=== PATIENT | male | born 1980 ===

== ENCOUNTER 2016-11-19 17:41 | Emergency (ER) | payer MEDICAID ==
[2016-11-19 17:53] VITALS: TEMP 98.1
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
[2016-11-20 00:37] VITALS: BP 150/90; PULSE 83; RESP 18; O2SAT 98
--- NOTE | 2016-11-20 09:32 | RAD ---
PROCEDURE: Radiographs of the Lumbar Spine. HISTORY: injury COMPARISON: No prior. FINDINGS: BONES: Normal alignment. No listhesis. No fracture. DISC SPACES: Unremarkable. OTHER FINDINGS: None. IMPRESSION: Unremarkable radiographs of the lumbar spine.
--- NOTE | 2016-11-20 09:34 | RAD ---
PROCEDURE: Cervical Spine Radiographs. HISTORY: Pain. COMPARISON: None. FINDINGS: BONES: Alignment maintained. No fracture. Dens Intact. DISC SPACES: Normal. SOFT TISSUES: Normal. No prevertebral soft tissue swelling. OTHER FINDINGS: None. IMPRESSION: Normal cervical spine radiographs
== END 2016-11-20 00:10 | disposition home or self-care (01) ==
LOC: ED 17:41
DX: S16.1XXA Strain of muscle, fascia and tendon at neck level, initial encounter (principal); S39.012A Strain of muscle, fascia and tendon of lower back, initial encounter; Y04.0XXA Assault by unarmed brawl or fight, initial encounter; E10.9 Type 1 diabetes mellitus without complications

== ENCOUNTER 2017-11-29 00:34 | Emergency (ER) | payer SELFPAY ==
[2017-11-29 00:42] VITALS: BMI 34.3
[2017-11-29 00:49] VITALS: RESP 18; TEMP 98.5
--- NOTE | 2017-11-29 01:29 | ED PDOC ---
Arrival/HPI - General Chief Complaint: Alcohol Ingestion Time Seen by Provider: 11/29/17 00:41 Historian: Patient - History of Present Illness Narrative History of Present Illness (Text): 11/29/17 01:26 37 year old male, whose past medical history includes depression and IDDM, who presents to the Emergency department for evaluation. Patient admits to drinking earlier tonight. Patient states he feels anxious and depresses. States he " needs someone to protect him". Patient denies any fever, chills, back pain, neck pain, abdominal pain, nausea, vomiting, diarrhea, suicidal ideation, homicidal ideation, or any other complaints. Time/Duration: Prior to Arrival Symptom Onset: Gradual Symptom Course: Unchanged Activities at Onset: Light Context: Home Past Medical History - Provider Review Nursing Documentation Reviewed: Yes - Infectious Disease Hx of Infectious Diseases: None - Cardiac Hx Cardiac Disorders: No - Pulmonary Hx Respiratory Disorders: No - Neurological Hx Neurological Disorder: No - HEENT Hx HEENT Disorder: No - Renal Hx Renal Disorder: No - Endocrine/Metabolic Hx Endocrine Disorders: Yes Hx Diabetes Mellitus Type 1: Yes (insulin pump) - Hematological/Oncological Hx Blood Disorders: No - Integumentary Hx Dermatological Disorder: No Hx Basal Cell Carcinoma: No - Musculoskeletal/Rheumatological Hx Musculoskeletal Disorders: No - Gastrointestinal Hx Gastrointestinal Disorders: No - Genitourinary/Gynecological Hx Genitourinary Disorders: No - Psychiatric Hx Anxiety: Yes Hx Substance Use: No Family/Social History - Physician Review Nursing Documentation Reviewed: Yes Family/Social History: Unknown Family HX Smoking Status: Never Smoked Hx Alcohol Use: Yes Frequency of alcohol use: Socially Hx Substance Use: No Allergies/Home Meds Allergies/Adverse Reactions: Allergies Penicillins Allergy (Verified 11/19/16 17:42) ANAPHYLAXIS Home Medications: Home Meds Medication Instructions Recorded Confirmed Home Med [Home Med] 1 unit SC PRN PRN 11/29/17 11/29/17 Review of Systems - Physician Review All systems were reviewed & negative as marked: Yes - Review of Systems Constitutional: Normal Eyes: Normal ENT: Normal Respiratory: Normal. absent: SOB, Cough Cardiovascular: Normal. absent: Chest Pain Gastrointestinal: Normal. absent: Abdominal Pain Genitourinary Male: Normal. absent: Dysuria, Frequency Musculoskeletal: Normal. absent: Back Pain, Neck Pain Skin: Normal. absent: Rash Neurological: Normal. absent: Headache, Dizziness Endocrine: Normal Hemo/Lymphatic: Normal Psychiatric: Anxiety, Depression Physical Exam Vital Signs Reviewed: Yes Vital Signs Temp Pulse Resp BP Pulse Ox 11/29/17 00:35 98.5 F 79 18 122/78 97 Temperature: Afebrile Blood Pressure: Normal Pulse: Regular Respiratory Rate: Normal Appearance: Positive for: Well-Appearing, Non-Toxic, Comfortable Pain Distress: None Mental Status: Positive for: Alert and Oriented X 3 Finger Stick Blood Glucose: 127 - Systems Exam Head: Present: Atraumatic, Normocephalic Pupils: Present: PERRL Extroacular Muscles: Present: EOMI Conjunctiva: Present: Normal Mouth: Present: Moist Mucous Membranes Neck: Present: Normal Range of Motion Respiratory/Chest: Present: Clear to Auscultation, Good Air Exchange. No: Respiratory Distress, Accessory Muscle Use Cardiovascular: Present: Regular Rate and Rhythm, Normal S1, S2. No: Murmurs Abdomen: No: Tenderness, Distention, Peritoneal Signs Back: Present: Normal Inspection Upper Extremity: Present: Normal Inspection. No: Cyanosis, Edema Lower Extremity: Present: Normal Inspection. No: Edema Neurological: Present: GCS=15, CN II-XII Intact, Speech Normal Skin: Present: Warm, Dry, Normal Color. No: Rashes Psychiatric: Present: Alert, Oriented x 3, Normal Insight, Normal Concentration , Intoxicated Medical Decision Making ED Course and Treatment: 11/29/17 01:30 Impression: 37 year old male presents to the Emergency department for evaluation due to anxiety and depression. Plan: -- Labs -- Reassess and disposition Progress Notes: 11/29/17 06:30 Patient cleared by PARIS Tang/ for discharge.To follow up with his psychiatrist this week - Lab Interpretations Lab Results: 11/29/17 02:00 11/29/17 02:00 Lab Results 11/29/17 02:00: WBC 4.8, RBC 4.73, Hgb 13.4 L, Hct 39.3 L, MCV 83.1, MCH 28.3, MCHC 34.1, RDW 13.3, Plt Count 171, MPV 8.9 11/29/17 02:00: Alcohol, Quantitative 142 H 11/29/17 02:00: Sodium 143, Potassium 4.1, Chloride 107, Carbon Dioxide 23, Anion Gap 18, BUN 17, Creatinine 0.8, Est GFR ( Amer) > 60, Est GFR (Non- Af Amer) > 60, Random Glucose 121 H, Calcium 8.9, Total Bilirubin 0.2, AST 46, ALT 51, Alkaline Phosphatase 93, Total Protein 7.5, Albumin 4.6, Globulin 2.9, Albumin/Globulin Ratio 1.6 11/29/17 01:45: Urine Opiates Screen Negative, Urine Methadone Screen Negative, Ur Barbiturates Screen Negative, Ur Phencyclidine Scrn Negative, Ur Amphetamines Screen Negative, U Benzodiazepines Scrn Negative, U Oth Cocaine Metabols Negative, U Cannabinoids Screen Negative 11/29/17 00:54: POC Glucose (mg/dL) 127 H - Scribe Statement The provider has reviewed the documentation as recorded by the Scribjeaneth Gonzalez All medical record entries made by the Xuanibe were at my direction and personally dictated by me. I have reviewed the chart and agree that the record accurately reflects my personal performance of the history, physical exam, medical decision making, and the department course for this patient. I have also personally directed, reviewed, and agree with the discharge instructions and disposition. Disposition/Present on Arrival - Present on Arrival Any Indicators Present on Arrival: No History of DVT/PE: No History of Uncontrolled Diabetes: No Urinary Catheter: No History of Decub. Ulcer: No History Surgical Site Infection Following: None - Disposition Have Diagnosis and Disposition been Completed?: Yes Diagnosis: Alcohol abuse, Depression Disposition: HOME/ ROUTINE Disposition Time: 06:32 Patient Plan: Discharge Condition: GOOD Discharge Instructions (ExitCare): Depression, Adult (DC), Alcohol Abuse and Alcoholism (DC) Additional Instructions: Follow up with your psychiatrist as instructed/avoid alcohol use Forms: [facility] [facility] (Burmese)
[2017-11-29 02:15] LABS: HEMOGLOBIN 13.4 g/dL (14.0-18.0); MEAN CELL VOLUME 83.1 fl (80.0-105.0); MEAN CORPUSCULAR HEMOGLOBIN 28.3 pg (25.0-35.0); MEAN CORPUSCULAR HGB CONC 34.1 g/dl (31.0-37.0); MEAN PLATELET VOLUME 8.9 fl (7.0-11.0); RBC 4.73 10^6/uL (3.5-6.1); RED CELL DISTRIBUTION WIDTH 13.3 % (11.5-14.5); WHITE BLOOD COUNT 4.8 10^3/ul (4.5-11.0)
[2017-11-29 02:22] LABS: ALB/GLOB RATIO 1.6 (1.1-1.8); ALBUMIN 4.6 g/dL (3.0-4.8); ALT/SGPT 51 U/L (7-56); AST/SGOT 46 U/L (17-59); BLOOD UREA NITROGEN 17 mg/dL (7-21); CALCIUM 8.9 mg/dL (8.4-10.5); GFR NON-AFRICAN AMERICAN > 60
[2017-11-29 03:38] LABS: BARBITURATES, UR NEGATIVE (NEGATIVE); BENZODIAZEPINES, UR NEGATIVE (NEGATIVE); OPIATES, UR NEGATIVE (NEGATIVE); PHENCYCLIDINE, UR NEGATIVE (NEGATIVE)
[2017-11-29 07:38] VITALS: BP 124/85; PULSE 86; O2SAT 100
== END 2017-11-29 06:40 | disposition home or self-care (01) ==
LOC: ED 00:34
DX: F10.10 Alcohol abuse, uncomplicated (principal); Y90.6 Blood alcohol level of 120-199 mg/100 ml; F32.9 Major depressive disorder, single episode, unspecified; E11.9 Type 2 diabetes mellitus without complications; Z79.4 Long term (current) use of insulin
CPT/HCPCS: 80053; 82948; 85027; 90791; 99283; G0480

== ENCOUNTER 2018-07-25 13:10 | Emergency (ER) | payer BC ==
[2018-07-25 13:11] VITALS: BMI 34.3
[2018-07-25] MEDS ORDERED: Albuterol-Ipratrop 3 mg / 0.5 (3 ml) UD IH STA (14:03)
[2018-07-25] MEDS ORDERED: guaiFENesin 200 mg/10 ml Syrup UD PO ONE (14:04)
[2018-07-25] MEDS ORDERED: Sodium Chloride 0.9% 1,000 ML IV STA (14:04)
--- NOTE | 2018-07-25 14:18 | ED PDOC ---
Arrival/HPI - General Historian: Patient - History of Present Illness Narrative History of Present Illness (Text): 07/25/18 14:15 37 year old male, whose past medical history includes IDDM on an insulin pump and seasonal allergies, presents complaining of shortness of breath and anxiety. Patient states he has been following up with his PMD Dr. Smith for his seasonal allergies. He states he was recently prescribed cough medication and antibiotics which he is currently taking. He reports he went to the doctor today for continuous symptoms, but the persistent cough began to make him feel anxious where he than began having shortness of breath and shaking. Patient is not a s moker and denies any recent travel. Patient denies any fever, chills, chest pain, nausea, vomiting, diarrhea, urinary symptoms, back pain, neck pain, leg pain, headache, dizziness, or any other complaints. PMD: Dr. Smith Symptom Onset: Gradual Symptom Course: Unchanged Activities at Onset: Light Context: Home <Dacia Hopson PA-C - Last Filed: 07/25/18 16:49> <Brennan Sidhu - Last Filed: 07/25/18 18:11> - General Chief Complaint: Shortness Of Breath Time Seen by Provider: 07/25/18 13:14 Past Medical History - Provider Review Nursing Documentation Reviewed: Yes Primary Care Provider: Chaitanya Smith - Infectious Disease Hx of Infectious Diseases: None - Cardiac Hx Cardiac Disorders: No - Pulmonary Hx Respiratory Disorders: No - Neurological Hx Neurological Disorder: No - HEENT Hx HEENT Disorder: No - Renal Hx Renal Disorder: No - Endocrine/Metabolic Hx Endocrine Disorders: Yes Hx Diabetes Mellitus Type 1: Yes (insulin pump) - Hematological/Oncological Hx Blood Disorders: No - Integumentary Hx Dermatological Disorder: No Hx Basal Cell Carcinoma: No - Musculoskeletal/Rheumatological Hx Musculoskeletal Disorders: No - Gastrointestinal Hx Gastrointestinal Disorders: No - Genitourinary/Gynecological Hx Genitourinary Disorders: No - Psychiatric Hx Anxiety: Yes Hx Substance Use: No - Anesthesia Hx Anesthesia: Yes Hx Anesthesia Reactions: No Hx Malignant Hyperthermia: No <Dacia Hopson PA-C - Last Filed: 07/25/18 16:49> Family/Social History - Physician Review Nursing Documentation Reviewed: Yes Family/Social History: No Known Family HX Smoking Status: Never Smoked Hx Alcohol Use: Yes Hx Substance Use: No <Dacia Hopson PA-C - Last Filed: 07/25/18 16:49> Allergies/Home Meds <Dacia Hopson PA-C - Last Filed: 07/25/18 16:49> <Brennan Sidhu - Last Filed: 07/25/18 18:11> Allergies/Adverse Reactions: Allergies Penicillins Allergy (Verified 11/19/16 17:42) ANAPHYLAXIS Home Medications: Home Meds Medication Instructions Recorded Confirmed Home Med 1 unit SC PRN PRN 11/29/17 11/29/17 Review of Systems - Physician Review All systems were reviewed & negative as marked: Yes - Review of Systems Constitutional: absent: Fevers, Other (chills) Respiratory: SOB, Cough Cardiovascular: absent: Chest Pain Gastrointestinal: absent: Diarrhea, Nausea, Vomiting Genitourinary Male: absent: Dysuria, Frequency, Hematuria Musculoskeletal: absent: Back Pain, Neck Pain, Other (leg pain) Neurological: absent: Headache, Dizziness Psychiatric: Anxiety <Dacia Hopson PA-C - Last Filed: 07/25/18 16:49> Physical Exam Vital Signs Reviewed: Yes Vital Signs Temp Pulse Resp Pulse Ox 07/25/18 13:15 98.2 F 91 H 18 95 Temperature: Afebrile Pulse: Regular Respiratory Rate: Normal Appearance: Positive for: Well-Appearing, Non-Toxic, Comfortable Pain Distress: None Mental Status: Positive for: Alert and Oriented X 3 - Systems Exam Head: Present: Atraumatic, Normocephalic Pupils: Present: PERRL Extroacular Muscles: Present: EOMI Conjunctiva: Present: Normal Mouth: Present: Moist Mucous Membranes Neck: Present: Normal Range of Motion Respiratory/Chest: Present: Clear to Auscultation, Good Air Exchange. No: Respiratory Distress, Accessory Muscle Use Cardiovascular: Present: Regular Rate and Rhythm, Normal S1, S2. No: Murmurs Abdomen: No: Tenderness, Distention, Peritoneal Signs Back: Present: Normal Inspection Upper Extremity: Present: Normal Inspection. No: Cyanosis, Edema Lower Extremity: Present: Normal Inspection. No: Edema Neurological: Present: GCS=15, Speech Normal Skin: Present: Warm, Dry, Normal Color. No: Rashes Psychiatric: Present: Alert, Oriented x 3, Normal Insight, Normal Concentration, Anxious <Dacia Hopson PA-C - Last Filed: 07/25/18 16:49> Vital Signs Temp Pulse Resp BP Pulse Ox 07/25/18 16:40 98 F 85 19 123/76 99 07/25/18 13:15 98.2 F 91 H 18 95 <Brennan Sidhu - Last Filed: 07/25/18 18:11> Medical Decision Making ED Course and Treatment: 07/25/18 14:19 Impression: 37 year old male presents complaining of continuous seasonal allergies and persistent cough where he began to become anxious and short of breath. Plan: -- EKG -- Labs -- Chest X-ray -- NS bolus 1 L IVF -- Ativan, Duoneb, Robituussin, IV Fluids -- Reassess and disposition Progress Notes: FS : 211. EKG : NSR at 95 bpm, no acute ST changes. CXR : NAD. Labs reviewed : glucose 305, AST 141, ALT 326. Patient seen by Dr. Smith while in the ER. On reevaluation, patient reports improvement of symptoms, denies any CP or SOB. On exam, patient remains awake alert and oriented 3 in no acute distress. Neck is supple, lungs are clear to auscultation, cardiac regular rate and rhythm, repeat neuro exam shows no focal findings. Results d/w the patient, he admits to eating while in the ER. Advised to follow up with primary care physician in 1-2 days without fail, especially regarding his elevated LFTs. Advised to take medication as prescribed and to continue taking current medications Rx by Dr. Smith. Return to the emergency room at any time for any new or worsening symptoms. Patient states he fully agrees with and understands discharge instructions. States that he agrees with the plan and disposition. Verbalized and repeated discharge instructions and plan. I have given the patient opportunity to ask any additional questions. - Lab Interpretations I have reviewed the lab results: Yes - RAD Interpretation Radiology Orders: 07/25/18 14:02 CHEST PORTABLE [RAD] Stat Stripper Latex: Radiologist - EKG Interpretation Interpreted by ED Physician: Yes Type: 12 lead EKG - Medication Orders Current Medication Orders: Sodium Chloride (Sodium Chloride 0.9%) 1,000 mls @ 1,000 mls/hr IV .Q1H STA Stop: 07/25/18 15:03 Discontinued Medications Albuterol/Ipratropium (Duoneb 3 Mg/0.5 Mg (3 Ml) Ud) 3 ml IH STAT STA Stop: 07/25/18 14:04 Guaifenesin (Robitussin) 200 mg PO ONCE ONE Stop: 07/25/18 14:05 Lorazepam (Ativan) 0.5 mg IVP ONCE ONE; Protocol Stop: 07/25/18 14:04 <Dacia Hopson PA-C - Last Filed: 07/25/18 16:49> - Lab Interpretations Lab Results: Troponin I < 0.01 ng/mL 07/25/18 16:10 NT-Pro-B Natriuret Pep 21.1 pg/mL (0-450) 07/25/18 16:10 Total Bilirubin 0.7 mg/dL (0.2-1.3) 07/25/18 16:10 AST 141 U/L (17-59) H D 07/25/18 16:10 ALT 326 U/L (7-56) H 07/25/18 16:10 Alkaline Phosphatase 112 U/L (38-126) 07/25/18 16:10 Total Protein 7.2 g/dL (5.8-8.3) 07/25/18 16:10 Albumin 4.3 g/dL (3.0-4.8) 07/25/18 16:10 Globulin 2.9 gm/dL 07/25/18 16:10 Albumin/Globulin Ratio 1.5 (1.1-1.8) 07/25/18 16:10 - RAD Interpretation Radiology Orders: 07/25/18 14:02 CHEST PORTABLE [RAD] Stat - Medication Orders Current Medication Orders: Discontinued Medications Albuterol/Ipratropium (Duoneb 3 Mg/0.5 Mg (3 Ml) Ud) 3 ml IH STAT STA Stop: 07/25/18 14:04 Last Admin: 07/25/18 15:02 Dose: 3 ml Guaifenesin (Robitussin) 200 mg PO ONCE ONE Stop: 07/25/18 14:05 Last Admin: 07/25/18 15:02 Dose: 200 mg Sodium Chloride (Sodium Chloride 0.9%) 1,000 mls @ 1,000 mls/hr IV .Q1H STA Stop: 07/25/18 15:03 Last Admin: 07/25/18 14:59 Dose: 1,000 mls/hr eMAR Start Stop Document 07/25/18 14:59 CD (Rec: 07/25/18 15:00 CD [facility] [id number]) Intravenous Solution Start Date 07/25/18 Start Time 14:45 End Date 07/25/18 End time 15:45 Total Infusion Time 60 Lorazepam (Ativan) 0.5 mg IVP ONCE ONE; Protocol Stop: 07/25/18 14:04 Last Admin: 07/25/18 15:02 Dose: 0.5 mg IVP Administration Document 07/25/18 15:02 CD (Rec: 07/25/18 15:02 CD [email or web address] Charges for Administration # of IVP Administrations 1 <Brennan Sidhu - Last Filed: 07/25/18 18:11> - PA / BED AND BREAKFAST OPERATOR / Resident Statement GABRIEL has reviewed & agrees with the documentation as recorded. - Scribe Statement The provider has reviewed the documentation as recorded by the Aravind Winters Provider Scribe Attestation: All medical record entries made by the Scribjeaneth were at my direction and personally dictated by me. I have reviewed the chart and agree that the record accurately reflects my personal performance of the history, physical exam, medical decision making, and the department course for this patient. I have also personally directed, reviewed, and agree with the discharge instructions and disposition.] <Dacia Hopson PA-C - Last Filed: 07/25/18 16:49> - PA / BED AND BREAKFAST OPERATOR / Resident Statement GABRIEL has reviewed & agrees with the documentation as recorded. <Brennan Sidhu - Last Filed: 07/25/18 18:11> Disposition/Present on Arrival - Present on Arrival Any Indicators Present on Arrival: No History of DVT/PE: No History of Uncontrolled Diabetes: No Urinary Catheter: No History of Decub. Ulcer: No History Surgical Site Infection Following: None - Disposition Have Diagnosis and Disposition been Completed?: Yes Disposition Time: 16:30 Patient Plan: Discharge <Dacia Hopson PA-C - Last Filed: 07/25/18 16:49> <Brennan Sidhu - Last Filed: 07/25/18 18:11> - Disposition Diagnosis: Anxiety, Cough, H/O seasonal allergies Disposition: HOME/ ROUTINE Condition: STABLE Discharge Instructions (ExitCare): Seasonal Allergies in Adults, Cough in Adults, Anxiety, Adult (DC) Additional Instructions: Thank you for letting us take care of you today. You were treated for anxiety, cough, h/o seasonal allergies. The emergency medical care you received today was directed at your acute symptoms. If you were prescribed any medication, please fill it and take as directed. It may take several days for your symptoms to resolve. Return to the Emergency Department if your symptoms worsen, do not improve, or if you have any other problems. Please contact your doctor in 2 days for re-evaluation and follow up / or call one of the physicians/clinics you have been referred to that are listed on the Patient Visit Information form that is included in your discharge packet. Bring any paperwork you were given at discharge with you along with any medications you are taking to your follow up visit. Our treatment cannot replace ongoing medical care by a primary care provider (PCP) outside of the emergency department. Thank you for allowing the [facility] team to be part of your care today. If you had an X-Ray : A Radiologist will review the ED reading if any change in treatment is needed we will contact you. Prescriptions: Albuterol 0.083% [Albuterol Sulfate 3 Ml] 3 ml IH Q4 #100 neb Nebulizer [Aeroeclipse II] 1 each MC DAILY #1 each Forms: [employer] (Tajik), WORK NOTE
--- NOTE | 2018-07-25 14:41 | RAD ---
Date of service: 07/25/2018 HISTORY: SOB COMPARISON: No prior. FINDINGS: LUNGS: The lungs are well inflated and clear. PLEURA: No pleural effusions or pneumothorax. CARDIOVASCULAR: The heart is normal in size. No aortic atherosclerotic calcifications present. OSSEOUS STRUCTURES: Within normal limits for the patient's age. VISUALIZED UPPER ABDOMEN: Normal. OTHER FINDINGS: None. IMPRESSION: No active pulmonary disease.
[2018-07-25 14:55] LABS: BASO # 0.01 K/mm3 (0.0-2.0); BASO % 0.2 % (0.0-3.0); HEMOGLOBIN 15.1 g/dL (14.0-18.0); LYMPH # 0.7 (1.2-3.4); LYMPH % 14.4 % (22.0-35.0); MEAN CELL VOLUME 84.4 fl (80.0-105.0); MEAN CORPUSCULAR HEMOGLOBIN 29.8 pg (25.0-35.0); MEAN CORPUSCULAR HGB CONC 35.3 g/dl (31.0-37.0); MONO # 0.5 (0.1-0.6); MONO % 9.3 % (1.0-6.0); RBC 5.07 10^6/uL (3.5-6.1); RED CELL DISTRIBUTION WIDTH 13.3 % (11.5-14.5); WHITE BLOOD COUNT 5.1 10^3/uL (4.5-11.0)
[2018-07-25 16:38] LABS: B-TYPE NATRIURETIC PEPTIDE 21.1 pg/mL (0-450); TROPONIN I < 0.01 ng/mL
[2018-07-25 16:40] LABS: ALB/GLOB RATIO 1.5 (1.1-1.8); ALBUMIN 4.3 g/dL (3.0-4.8); ALT/SGPT 326 U/L (7-56); AST/SGOT 141 U/L (17-59); BLOOD UREA NITROGEN 21 mg/dL (7-21); CALCIUM 8.8 mg/dL (8.4-10.5); GFR NON-AFRICAN AMERICAN > 60
[2018-07-25 16:41] VITALS: BP 123/76; PULSE 85; RESP 19; TEMP 98; O2SAT 99
--- NOTE | 2018-07-26 05:41 | CARD ---
APPROVED REPORT Date of service: 07/25/2018 EKG Measurement Heart [id number] <Conclusion> Normal sinus rhythm Normal ECG
== END 2018-07-25 17:00 | disposition home or self-care (01) ==
LOC: ED 13:10
DX: F41.9 Anxiety disorder, unspecified (principal); R05 Cough; J30.2 Other seasonal allergic rhinitis; E10.9 Type 1 diabetes mellitus without complications; Z96.41 Presence of insulin pump (external) (internal)
CPT/HCPCS: 71045; 80053; 82550; 82553; 82948; 83615; 83735; 83880; 84484; 85025; 93005; 96361; 96374; 99284; J2060; J7030

== ENCOUNTER 2018-07-29 07:46 | Outpatient (CLI) | payer BC | END 2018-07-29 07:47 | disposition home or self-care (01) | LOC: RAD 07:46 ==